=== PATIENT | male | born 1965 | race Caucasian/White ===

== ENCOUNTER 2022-09-01 06:15 | Day surgery (SDC) | payer BC, SELFPAY ==
[2022-09-01 06:29] VITALS: BP 144/89; PULSE 111; RESP 18; TEMP 36.4; O2SAT 98; BMI 24.7
[2022-09-01 06:47] VITALS: BMI 24.7
[2022-09-01] MEDS: Lactated Ringers 1,000 ML 50 ML IVCONT (06:55)
--- NOTE | 2022-09-01 07:53 | P.CONAN_ITS ---
HPI - Anesthesia Eval Consult details Narrative: ho polyp screening [facility] Past Medical History Medical History (Updated 08/31/22 @ 08:30 by Lexus Castro RN) HTN (hypertension) Hyperlipidemia Family History Family history of problems with anesthesia: No Surgical History Surgical History (Updated 08/31/22 @ 08:30 by Lexus Castro RN) History of colonoscopy Hx of tonsillectomy History of Problems with Anesthesia: No Social History Social History Patient Tobacco Use Status: Never used Tobacco Use of substances other than those prescribed or required for medical reasons: No Are you DNR?: No Advance Directives: No Advance Directives Information Provided: Yes Meds Allergies Allergy/AdvReac Type Severity Reaction Status Date / Time No Known Allergies Allergy Unverified 03/13/20 16:11 Active Medications: Current Medications Lactated Ringer's (Lr) 1,000 mls @ 50 mls/hr IVCONT .Q20H BAM Last Admin: 09/01/22 06:55 Dose: 50 mls/hr Sodium Biphosphate/Sodium Phosphate (Sodium Phosphate,Gallia-Dibasic 133 Ml Enema) 133 ml NM ONCE PRN PRN Reason: Poor Colonoscopy Prep Results Home Medications Medication Instructions Recorded Confirmed Last Taken Type atorvastatin 20 mg tablet 1 tab PO DAILY 08/31/22 09/01/22 Unknown History clonazepam 0.5 mg tablet 1 tab PO BID PRN Anxiety 08/31/22 09/01/22 Unknown History desonide 0.05 % topical cream 1 appl topical DAILY 08/31/22 09/01/22 Unknown History hydrochlorothiazide 12.5 mg capsule 1 cap PO DAILY 08/31/22 09/01/22 Unknown History ketoconazole 2 % topical cream 1 appl topical QD-BID 08/31/22 09/01/22 Unknown History mometasone 50 mcg/actuation nasal 2 spray intranasal DAILY PRN 08/31/22 09/01/22 Unknown History spray allergies aspirin 81 mg capsule 81 mg PO DAILY 09/01/22 09/01/22 08/24/22 History Exam Exam Date and Time: September 01, 2022 0753 Height,Weight and Vital Signs: Height 6 ft 1 in Weight 85.275 kg Last Vital Signs Temp 97.5 F 09/01/22 06:29 Pulse 111 H 09/01/22 06:29 Resp 18 09/01/22 06:29 BP 144/89 H 09/01/22 06:29 Pulse Ox 98 09/01/22 06:29 O2 Del Method 09/01/22 06:29 Airway Mallampati Class: II TM Dist: >3cm Neck ROM: Full Heart: rr Lungs: cta Assessment and Plan Assessment Anesthesia Assessment: Anesthesia Plan Discussed and Chart Reviewed Final Anesthetic Review Family History of Problems with Anesthesia: No History of Problems with Anesthesia: No NPO: Yes ASA Class: II Final Preanesthetic Review: No Changes in Pt Med Stat, Meds/Allgs Chart Reviewed, Consent Obtained/Reviewed and Anes Risks/Benef Reviewed Patient Risk: Low Procedure Risk: Low Anesthetic Plan Anesthetic Plan: MAC: Disposition: Standard PACU
--- NOTE | 2022-09-01 08:25 | P.BOP_ITS ---
Brief Operative Note Date of Service: 09/01/22 Pre-op diagnosis: Screening Post-op diagnosis: other (Polyps) Procedure: Colonoscopy to the cecum and TI with biopsy and removal of polyps Surgeon: Emmett Chase Anesthesia: MAC Was an Progressive Care Manager used for this Procedure?: No Estimated blood loss (mL): 2.0 Pathology: other (A. Ascending colon polyp B. Transverse colon polyp) Condition: stable Disposition: PACU
[2022-09-01 08:26] VITALS: BP 103/63; PULSE 68; RESP 20; TEMP 36.1; O2SAT 95
[2022-09-01 08:40] VITALS: BP 99/54; PULSE 57; RESP 20; O2SAT 95
[2022-09-01 08:55] VITALS: BP 102/64; PULSE 57; RESP 20; O2SAT 97
[2022-09-01 09:10] VITALS: BP 105/78; PULSE 67; RESP 20; TEMP 36.6; O2SAT 98
--- NOTE | 2022-09-01 09:14 | OP_ITS ---
SURGEON: Emmett Chase MD INDICATIONS: The patient presents for evaluation of personal history of tubular adenoma of the colon and colorectal cancer screening. Full consent has been obtained from him for this, including risks of bleeding and perforation. PREOPERATIVE DIAGNOSIS: POSTOPERATIVE DIAGNOSIS: PROCEDURE PERFORMED: Colonoscopy to the cecum and terminal ileum with biopsy and removal of polyps. ESTIMATED BLOOD LOSS: COMPLICATIONS: ANESTHESIA: Monitored anesthesia care. ASSISTANTS: SPECIMENS: PREOPERATIVE DIAGNOSES: Colorectal cancer screening and personal history of tubular adenoma of the colon. POSTOPERATIVE DIAGNOSES: Colorectal cancer screening and personal history of tubular adenoma of the colon, small colon polyps, mild sigmoid diverticulosis, and small internal hemorrhoids. DESCRIPTION OF PROCEDURE: The patient was placed in the left lateral decubitus position. The digital rectal exam revealed no abnormalities. The Olympus video pediatric colonoscope was entered into the rectum and advanced easily to the cecum. Once in the cecum, I did identify normal-appearing cecal pouch with appendiceal orifice and a normal-appearing ileocecal valve. The terminal ileum was cannulated and appeared normal. The scope was withdrawn back in the colon. The entire cecum and ileocecal valve appeared normal. The scope was slowly withdrawn assessing all mucosal surfaces carefully. Preparation was excellent. In the proximal ascending colon, there was an approximately 3 mm polyp which was biopsied and completely removed with a cold biopsy forceps. In the transverse colon, there was an approximately 3 mm polyp which was biopsied and completely removed with a cold biopsy forceps. I did not visualize any other polyps, colitis, nor angiodysplasia. There was a mild amount of sigmoid diverticulosis. In the rectum, the scope was retroflexed, visualizing internal hemorrhoids, but no other pathology. The rectal mucosa appeared normal. The scope was straightened out and withdrawn from the patient. He tolerated the procedure well and was returned to the recovery area in stable condition. IMPRESSION: 1. Small colon polyps. 2. Diverticulosis. 3. Internal hemorrhoids. PLAN: The results of the pathology will be checked. I would recommend a repeat colonoscopy in 5 years for further surveillance. He would otherwise see me on a p.r.n. basis. This has been discussed with his . MD LUCA Cervantes/DENISE / [id number] ANTONI
== END 2022-09-01 09:47 | disposition home or self-care (01) ==
PROVIDERS: Visit Provider Internal Medicine
PROC: 0DJD8ZZ Inspection of Lower Intestinal Tract, Via Natural or Artificial Opening Endoscopic (ICD-10-PCS; CPT 45378; principal; 2022-09-01 07:30)
DX: Z12.11 Encounter for screening for malignant neoplasm of colon (principal); Z86.010 Personal history of colon polyps; D12.2 Benign neoplasm of ascending colon; K51.40 Inflammatory polyps of colon without complications; K57.30 Diverticulosis of large intestine without perforation or abscess without bleeding; K64.8 Other hemorrhoids; I10 Essential (primary) hypertension; E78.5 Hyperlipidemia, unspecified; Z79.82 Long term (current) use of aspirin; Z79.899 Other long term (current) drug therapy
CPT/HCPCS: 45380; 88305; J2250

== ENCOUNTER 2025-05-21 08:14 | Outpatient (AMB) | payer OTHER, SELFPAY ==
--- OUTSIDE RECORDS SUMMARY | 2025-05-21 08:26 | XMS_ITS | Clinical Summary ---
Author Organization [facility] ity Address [address] [place] [address] Care Team Providers Care Leadership Development Consultant Name Role Phone Unavailable Primary Care Provider Unavailabl e Social History Tobacco Use Types Packs/Day Years Used Date Smoking Tobacco: Never Assessed Sex and Gender Information Value Date Recorded Sex Assigned at Not on file Legal Sex Male 6:06 PM EST Gender Identity Not on file Sexual Orientation Not on file Plan of Treatment Health Maintenance Due Date Last Done Comments DTaP,Tdap,and Td Vaccines (1 - Tdap) 09/29/1986 Hepatitis B Vaccines (1 of 3 - 19+ 3-dose series) 09/29/1986 Pneumococcal Vaccine: 50+ Ye ars (1 of 1 - PCV) 09/29/2017 Zoster Vaccines (1 of 2) 09/29/2017 Depression Screening 06/27/2024 COVID-19 Vaccine (1 - 2024-2 6 season) 2025 Influenza Vaccine (#1) 2025 RSV Immunization Adult Patie nts (1 - 1-dose 75+ series) 09/29/2042 HIB Vaccines Aged Out No longer eligi ble based on patient's age to complete this topic HPV Vaccines Aged Out No longer eligi ble based on patient's age to complete this topic Hepatitis A Vaccines Aged Out No long er eligible based on patient's age to complete this topic IPV Vaccines Aged Out No longer eligi ble based on patient's age to complete this topic MMR Vaccines Aged Out No longer eligi ble based on patient's age to complete this topic Meningococcal ACWY Vaccine Aged Out N o longer eligible based on patient's age to complete this topic Meningococcal B Vaccine Aged Out No l onger eligible based on patient's age to complete this topic RSV Immunization Patients Un arabella 20 months Aged Out No longer eligible b ased on patient's age to complete this topic Varicella Vaccines Aged Out No longer eligible based on patient's age to complete this topic
--- OUTSIDE RECORDS SUMMARY | 2025-05-21 08:26 | XMS_ITS | Clinical Summary ---
Author Organization [facility] Address [address] [address] Phone Care Team Providers Care Optometric Coordinator Name Role Phone Dimas Abdi DO Primary Care Provider [phone] Social History Tobacco Use Types Packs/Day Years Used Date Smoking Tobacco: Never Assessed Sex and Gender Information Value Date Recorded Sex Assigned at Not on file Legal Sex Male 12:49 PM EST Gender Identity Not on file Sexual Orientation Not on file Plan of Treatment Upcoming Encounters Date Type Department Care Team (Late st Contact Info) Description 07/01/2025 9:00 AM EST Office Visit [facility]. [address] [address] Tremaine Benito MD [address] [address] Health Maintenance Due Date Last Done Comments Pneumococcal Vaccine: 50+ Ye ars (1 of 2 - PCV) 09/29/1986 Colorectal Cancer Screening: Annual FOBT 09/29/2016 Colorectal Cancer Screening: Sigmoidoscopy 09/29/2016 Colorectal Cancer Screening: Colonoscopy 06/15/2020 06/15/2010 Influenza Vaccine (#1) 2025 2, 02/14/2020, 02/27/2019 Hepatitis B Vaccine Completed 02/01/2019, 08/02/2018, 07/04/2018 Insurance [employer] Care Teams Optometric Coordinator Relationship Specialty Start Date End Date Dimas Abdi DO [address] [place] [address] PCP - General Internal Medicine 05/14/25
--- OUTSIDE RECORDS SUMMARY | 2025-05-21 08:26 | XMS_ITS | Clinical Summary ---
Author Organization [facility] Address [address] [place] [address] Care Team Providers Care Medical Management Trainer Name Role Phone Unavailable Primary Care Provider Unavailabl e Social History Tobacco Use Types Packs/Day Years Used Date Smoking Tobacco: Never Assessed Sex and Gender Information Value Date Recorded Sex Assigned at Not on file Gender Identity Not on file Sexual Orientation Not on file Plan of Treatment Not on file
--- NOTE | 2025-05-21 08:28 | MHC.OFFVIS ---
Intake Visit Reasons: 1 yr fu Allergies No Known Allergies Allergy (Unverified 05/21/25 08:33) Medication List - Last Reconciled 05/21/25 by Leda Lucas CNP aspirin 81 mg PO DAILY atorvastatin 1 tab PO DAILY clonazepam (Klonopin) 0.5 mg PO BID 30 days desonide 0.05% 1 appl topical DAILY hydrochlorothiazide 1 cap PO DAILY ketoconazole 2% 1 appl topical QD-BID mometasone 50 mcg/actuation 2 sprays intranasal DAILY PRN HPI Comments Details: He was doing okay. No recurrence of Monroe's palsy. No significant dizziness or headaches. Mild hand tremors. No functional impairment. No difficulty eating, drinking, or swallowing. Some anxiety. Taking clonazepam 0.5mg about 2x/week which helps, no medication side effects. 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 His dizziness and anxiety is under control. He has reduced his clonazepam to 0.5 mg tablet averaging 1-2/ wk. 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 He is running 18 miles/ wk. Family history of tremors in his father and son. In the past his workup for Lyme disease has been negative. [facility] Medical History (Updated 05/21/25 @ 08:40 by Leda Lucas CNP) Benign familial tremor Dizziness Monroe's palsy Hyperlipidemia HTN (hypertension) Surgical History (Updated 08/31/22 @ 08:30 by Lexus Castro RN) Hx of tonsillectomy History of colonoscopy Family History (Updated 05/21/25 @ 08:43 by Leda Lucas CNP) Father Tremor Son Tremor Social History Patient Tobacco Use Status: Never used Tobacco Review of Systems Const Denies chills, Denies daytime sleepiness, Denies difficulty sleeping, Denies fatigue, Denies fever(s), Denies frequent falls, Denies headache(s), Denies increased appetite, Denies poor appetite, Denies snoring, Denies weakness, Denies weight gain and Denies weight loss Eyes Denies loss of vision ENT Denies vertigo, Denies dizziness, Denies headache(s) and Denies neck pain Card Denies chest pain at rest, Denies chest pain with activity, Denies syncope, Denies leg edema, Denies palpitations, Denies dyspnea and Denies dyspnea on exertion Resp Denies cough, Denies dyspnea, Denies dyspnea on exertion and Denies snoring GI Denies abdominal pain, Denies constipation, Denies heartburn, Denies diarrhea and Denies nausea Denies urinary frequency, Denies urinary incontinence and Denies urinary urgency Musc Denies abnormal gait, Denies back pain, Denies myalgias, Denies arthralgias, Denies neck pain, Denies numbness and Denies tingling Neuro Denies abnormal gait, Denies vertigo, Denies dizziness, Denies syncope, Denies frequent falls, Denies headache(s), Denies lack of coordination, Denies loss of vision, Denies memory loss, Denies numbness, Denies Other visual disturbances, Denies restless legs, Denies seizure-like activity, Denies tingling, Denies paresthesias, Reports tremor(s) and Denies weakness Psych Denies anxiety, Denies depression, Denies auditory hallucinations, Denies memory loss and Denies visual hallucinations Endo Denies fatigue and Denies palpitations Physical Exam Const Other: General Appearance:? normal, in no acute distress. Heart:? S1, S2 normal, no murmurs. Lungs:? clear anteriorly and posteriorly. Musculoskeletal:? normal. Extremities:? no edema. Psych:? alert, oriented, cognitive function intact, cooperative with exam. Neuro Other: Abnormal Neurological Findings:?Partial left facial weakness with some synkinesis. Mild bilateral hand tremor on sustained posture. Mental Status: alert and oriented X 3. Normal attention, orientation, memory, and affect. Cranial Nerves: Pupils are equal, round, and reactive to light. External ocular muscles are intact. Visual harman are full, no ptosis. Face is symmetrical. Partial left facial weakness as above. Facial sensations are normal. Tongue protrudes in midline. Palate elevates symmetrically. Shoulder shrugging is normal Motor Examination: Normal muscle tone, bulk and strength. No atrophy or fasciculations. No drift of the extended upper extremities. DTR 2+. Plantars are flexor. Sensory Exam: Normal light touch, temperature, pinprick, vibration, and joint-position sensations. Rhomberg sign is absent. Coordination: No ataxia. No titubation. Gait Exam: Within normal limits. Cerebellar Signs: [id number] is okay. Extrapyramidal System: Tremor as above. No rigidity with normal facial expressions. No bradykinesia. No bradyphrenia. Normal arm swing and posture. No propulsion or retropulsion. Speech: Normal. Assessment & Plan Assessment & Plan (1) Dizziness: Code(s): R42 - Dizziness and giddiness Category: Medical Plan: Continue clonazepam 0.5mg 1 tablet twice a day as needed for anxiety #60 for 30 days. (2) Monroe's palsy: Code(s): G51.0 - Monroe's palsy Category: Medical (3) Benign familial tremor: Code(s): G25.0 - Essential tremor Category: Medical (4) Anxiety: Code(s): F41.9 - Anxiety disorder, unspecified Category: Medical Plan . Coding Level of Care Code Est Pt Level 3 (65337) Diagnoses Dizziness R42 Monroe's palsy G51.0 Benign familial tremor G25.0 Anxiety F41.9
== END 2025-05-21 08:40 | disposition home or self-care (01) ==
LOC: HO.HSM 08:15
PROVIDERS: PCP Internal Medicine; Referring Provider Internal Medicine; Visit Provider Registered Nurse
DX: R42 Dizziness and giddiness (principal); G51.0 Bell's palsy; G25.0 Essential tremor; F41.9 Anxiety disorder, unspecified
CPT/HCPCS: 99213